=== PATIENT | female | born 1945 | race Caucasian/White ===

== ENCOUNTER 2016-06-18 09:20 | Day surgery (SDC) | payer OTHER, MEDICARE ==
[2016-06-07 14:25] VITALS: BMI 41.3
--- NOTE | 2016-06-18 07:35 | HP ---
Admitting History and Physical - Admission Chief Complaint: Right knee OA x years History of Present Illness: 70 year old female presents in regard to her right knee. Longstanding history of right knee OA, most prominent within the medial compartment - as documented via diagnostic imaging. Patient complains of pain, limited ROM and difficulty ambulating. Patient has failed conservative treatment including PO medication, activity modification and injections. At this point, patient would like to proceed with a right partial (medial compartment) knee arthroplasty (MAKOplasty) . - Past Medical History Cardiovascular: Yes: HTN, Hyperlipdemia Gastrointestinal: Yes: GERD ...: No Endocrine: Yes: Diabetes Mellitus - Past Surgical History Additional Past Surgical History: See written H&P in chart - Smoking History Smoking history: Former smoker Have you smoked in the past 12 months: No If you are a former smoker, when did you quit?: AFTER 1 YR QUIT AGE 16 - Alcohol/Substance Use Hx Alcohol Use: No Home Medications - Allergies Allergies/Adverse Reactions: Allergies Allergy/AdvReac Type Severity Reaction Status Date / Time erythromycin base Allergy Rash Verified 06/07/16 14:25 Sulfa (Sulfonamide Allergy Rash Verified 06/07/16 14:25 Antibiotics) - Home Medications Home Medications: Ambulatory Orders Amlodipine Besylate [Norvasc -] 5 mg PO DAILY 05/07/14 Glipizide [Glipizide ER] 5 mg PO DAILY 05/07/14 Metformin HCl 850 mg PO BID 05/07/14 Pantoprazole Sodium [Protonix] 40 mg PO DAILY 05/07/14 Gabapentin [Neurontin] 600 mg PO BID 08/27/15 Amiodarone HCl [Cordarone] 400 mg PO DAILY 06/07/16 Aspirin Coated [Ecotrin -] 81 mg PO DAILY 06/07/16 Metoprolol Succinate [Toprol Xl] 50 mg PO BID 06/07/16 Rosuvastatin Calcium 20 mg PO HS 06/07/16 Valsartan 80 mg PO DAILY 06/07/16 Review of Systems - Review of Systems Musculoskeletal: reports: Decreased ROM (Right knee), Joint Pain, Joint Swelling Physical Examination Constitutional: Yes: Well Nourished, No Distress Eyes: Yes: Conjunctiva Clear HENT: Yes: Atraumatic, Normocephalic Neck: Yes: Supple Cardiovascular: Yes: Regular Rate and Rhythm Respiratory: Yes: Regular Gastrointestinal: Yes: Soft ...Rectal Exam: Yes: Deferred Musculoskeletal: Yes: Joint Stiffness (Right knee) Assessment/Plan 70 year old female presents in regard to her right knee. Longstanding history of right knee medial compartment osteoarthritis. Patient has failed conservative treatment. Proceed with a right partial (medial compartment) knee arthroplasty (MAKOplasty).
[~2016-06-18 09:20] MED LIST: CEFAZOLIN 2 GM in DEXTROSE 5%-WATER - 50 ML IVPB ONE; CELECOXIB 200 MG CAPSULE PO ONE; GABAPENTIN 300 MG CAPSULE (FP) PO ONE; ROPIVICAINE 0.2%/MORPH PF/KETOROLAC - 51ML DISP.SYRINGE IA ONE; TRANEXAMIC ACID 1000 MG/10 ML VIAL IVPUSH ONE; oxyCODONE HCL 10 MG SUSTAINED ACTING TABLET PO ONE
[2016-06-18] MEDS ORDERED: ceFAZolin SODIUM 1 GM VIAL ONE ×2 (09:27→11:44)
[2016-06-18] MEDS ORDERED: THROMBIN (BOVINE) 5,000 UNIT VIAL TP ONE (09:28)
[2016-06-18] MEDS ORDERED: GELATIN, ABSORBABLE 100 EACH SPONGE TP ONE (09:28)
[2016-06-18] MEDS ORDERED: DEXAMETHASONE SOD PHOSPHATE/PF 10 MG/ML SDV ONE (10:22)
[2016-06-18] MEDS ORDERED: MIDAZOLAM HCL 2 MG/2 ML SINGLE DOSE VIAL ONE (10:23)
[2016-06-18] MEDS ORDERED: ROPIVACAINE HCL 0.5% 30ML VIAL ONE (10:23)
[2016-06-18] MEDS ORDERED: PROPOFOL 20 ML ONE ×3 (11:12)
[2016-06-18] MEDS ORDERED: SUCCINYLCHOLINE CHLORIDE 200 MG/10 ML VIAL ONE (11:14)
[2016-06-18] MEDS ORDERED: BUPIVACAINE HCL/PF 0.5% (5MG/ML) 10 ML VIAL ONE (11:19)
[2016-06-18] MEDS ORDERED: VANCOMYCIN 1,000 MG VIAL (RESTRICTED TO ID ONLY) ONE (12:31)
[2016-06-18] MEDS ORDERED: ONDANSETRON 4 MG/2 ML VIAL ONE (13:26)
[2016-06-18] MEDS ORDERED: ONDANSETRON 4 MG/2 ML VIAL IVPB PRN (14:38)
[2016-06-18] MEDS ORDERED: MAG HYDROX/AL HYDROX/SIMETH 30 ML UNIT-DOSE CUP PO PRN (14:38)
--- NOTE | 2016-06-18 14:38 | OP ---
Operative Note - Note: Operative Date: 06/18/16 Pre-Operative Diagnosis: right knee OA Operation: right knee makoplasty partial medial knee replacement Post-Operative Diagnosis: Same as Pre-op Surgeon: Donald Lopez [employer] Technician: Joana Leyva Anesthesia: Spinal Estimated Blood Loss (mls): 100
[2016-06-18] MEDS ORDERED: oxyCODONE HCL 5 MG TABLET PO PRN (14:45)
[2016-06-18] MEDS ORDERED: LACTATED RINGERS SOLUTION 1,000 ML IV SCH ×2 (14:45)
[2016-06-18] MEDS: ACETAMINOPHEN 325 MG TABLET (FP) PO SCH ×2 (15:25→21:25)
[2016-06-18] MEDS: traMADol HCL 50 MG TABLET PO SCH ×2 (15:25→21:25)
[2016-06-18] MEDS: KETOROLAC TROMETHAMINE 30 MG/1 ML VIAL IVPUSH SCH ×2 (15:25→21:26)
[2016-06-18] MEDS: oxyCODONE HCL 5 MG TABLET PO PRN (18:57)
[2016-06-18] MEDS: CEFAZOLIN 2 GM/D5W 50 ML IVPB SCH (20:16)
[2016-06-18] MEDS: GABAPENTIN 300 MG CAPSULE (FP) PO SCH (21:24)
[2016-06-18] MEDS: SENNOSIDES/DOCUSATE COMBO (SENNA PLUS) TABLET (UD) PO SCH (21:24)
[2016-06-18] MEDS: METOPROLOL SUCCINATE 50 MG TAB.SR.24H (FP) PO SCH (21:24)
[2016-06-18] MEDS: ASCORBIC ACID 500 MG TABLET (FP) PO SCH (21:25)
[2016-06-18] MEDS: oxyCODONE HCL 10 MG SUSTAINED ACTING TABLET PO SCH (21:35)
[2016-06-18] MEDS ORDERED: ROSUVASTATIN CA 20 MG TABLET (FP) PO SCH (22:00)
[2016-06-18] MEDS ORDERED: GABAPENTIN 300 MG CAPSULE (FP) PO SCH (22:00)
[2016-06-19] MEDS: traMADol HCL 50 MG TABLET PO SCH ×2 (03:04→09:19)
[2016-06-19] MEDS: ACETAMINOPHEN 325 MG TABLET (FP) PO SCH ×2 (03:04→09:20)
[2016-06-19] MEDS: CEFAZOLIN 2 GM/D5W 50 ML IVPB SCH (03:04)
[2016-06-19] MEDS: KETOROLAC TROMETHAMINE 30 MG/1 ML VIAL IVPUSH SCH ×2 (03:05→09:22)
[2016-06-19] MEDS ORDERED: glipiZIDE-XL 5 MG TAB.ER.24 PO SCH (07:00)
[2016-06-19 08:45] LABS: ANION GAP 6 (8-16); CO2 25 mmol/L (22-28); GLUCOSE,RANDOM 185 mg/dl (74-106)
[2016-06-19 08:57] LABS: MCH 26.5 pg (25.7-33.7); MCHC 32.4 g/dl (32.0-36.0); MEAN CELL VOLUME 81.8 fl (80-96); MEAN PLT VOLUME 8.7 fl (7.5-11.1); PLATELET COUNT 289 K/MM3 (134-434); RDW 15.6 % (11.6-15.6); WHITE BLOOD COUNT 12.1 K/mm3 (4.0-10.8)
[2016-06-19] MEDS: oxyCODONE HCL 10 MG SUSTAINED ACTING TABLET PO SCH (09:18)
[2016-06-19] MEDS: GABAPENTIN 300 MG CAPSULE (FP) PO SCH (09:19)
[2016-06-19] MEDS: ASCORBIC ACID 500 MG TABLET (FP) PO SCH (09:19)
[2016-06-19] MEDS: SENNOSIDES/DOCUSATE COMBO (SENNA PLUS) TABLET (UD) PO SCH (09:19)
[2016-06-19] MEDS: METOPROLOL SUCCINATE 50 MG TAB.SR.24H (FP) PO SCH (09:21)
--- NOTE | 2016-06-19 09:27 | PN ---
Progress Note (short form) - Note Progress Note: Pt seen and examined. Comfortable. No complaints. AVSS Selected Entries 06/19/16 06/19/16 06:49 07:59 Temperature 98.6 F Pulse Rate 65 Respiratory 17 Rate Blood Pressure 132/60 O2 Sat by Pulse 97 Oximetry (%) Laboratory Tests 06/19/16 06/19/16 08:00 08:00 WBC 12.1 H Hgb 10.8 Hct 33.3 Plt Count 289 Sodium 133 L Potassium 4.2 Chloride 102 Carbon Dioxide 25 Anion Gap 6 L BUN 26 H Random Glucose 185 H Gen: NAD RLE: c/d/i, NVID A/P 70yo female POD#1 s/p R NOE medial UKA 1. PT/OOB - WBAT RLE 2. D/C home today
--- NOTE | 2016-06-19 09:38 | DS ---
Physical Examination Vital Signs: Vital Signs Temperature 98.6 F 06/19/16 06:49 Pulse Rate 65 06/19/16 06:49 Respiratory Rate 17 06/19/16 07:59 Blood Pressure 132/60 06/19/16 06:49 O2 Sat by Pulse Oximetry (%) 97 06/19/16 07:59 Labs: CBC, BMP 06/19/16 08:00 06/19/16 08:00 Discharge Summary Reason For Visit: OSTEOARTHRITIS Current Active Problems Osteoarthritis of right knee (Acute) Procedures: Principal: makoplasty right medial unicompartmental knee replacement Hospital Course: Admitted for elective surgery. Procedure performed without complications. Pt received postoperative antibiotic prophylaxis and DVT ppx. Ambulated with physical therapy. Stable for discharge home with outpatient followup. Condition: Stable - Instructions Diet, Activity, Other Instructions: Dr. Lopez - Knee Replacement Instructions Keep the Aquacel dressing on until removed by Dr. Lopez in 10-14 days - it is antibacterial and waterproof and you can shower with it on. Call the office for a follow-up appointment with Dr. Lopez in 10-14 days. [phone] Take ELIQUIS twice daily for 12 days (or if insurance doesn't cover it Aspirin 325mg twice daily) to prevent blood clots in your legs - after that, resume taking your 81mg Aspirin once daily. Resume Pantoprazole 40mg daily to protect against heartburn and ulcers. Take a multiviamin and additional vitamin C supplement daily. Make sure to eat plenty of protein. Drink plenty of water to stay hydrated and prevent constipation. For pain: *Mild pain (1-3/10): Take 1 Tramadol tablet every 4 hours as needed. Moderate pain (4-6/10): Take 1 Tramadol tablet and 1 Percocet tablet every 4 hours as needed. Severe pain (7-10/10): Take 1 Tramadol tablet and 2 Percocet tablets every 4 hours as needed. Activity: You can put as much weight on the operative leg as you want Right after you get home, there will be a physical therapist coming to your house to help you walk around and bend/straighten your knee. After your follow-up appointment, you will be sent for more intensive outpatient physical therapy which will include machines and equipment that the home therapist cannot bring to your house. Always use a walker or cane for balance and to prevent falls. Disposition: [facility]/HOME HEALTH CARE - Home Medications Comprehensive Discharge Medication List: Ambulatory Orders Amlodipine Besylate [Norvasc -] 5 mg PO DAILY 05/07/14 Glipizide [Glipizide ER] 5 mg PO DAILY 05/07/14 Metformin HCl 850 mg PO BID 05/07/14 Pantoprazole Sodium [Protonix] 40 mg PO DAILY 05/07/14 Gabapentin [Neurontin] 600 mg PO BID 08/27/15 Amiodarone HCl [Cordarone -] 400 mg PO DAILY 06/07/16 Metoprolol Succinate [Toprol Xl] 50 mg PO BID 06/07/16 Rosuvastatin Calcium 20 mg PO HS 06/07/16 Valsartan 80 mg PO DAILY 06/07/16 Apixaban [Eliquis -] 2.5 mg PO BID #23 tablet 06/19/16 Ascorbic Acid [Vitamin C -] 500 mg PO BID tablet 06/19/16 Multivitamins [Multivit ([facility] Formul[facility])] 1 tab PO DAILY tab 06/19/16 Oxycodone HCl/Acetaminophen [Percocet 5-325 mg Tablet] 1 - 2 tab PO Q4H PRN #60 tablet MDD 10 06/19/16 Sennosides/Docusate Sodium [Pericolace -] 2 tablet PO BID tablet 06/19/16 Tramadol HCl [Ultram -] 50 mg PO Q4H PRN #90 tablet MDD 6 06/19/16
--- NOTE | 2016-06-19 09:52 | PN ---
Progress Note (short form) - Note Progress Note: 70F POD1 s/p right knee makoplasty under spinal anesthetic with adductor canal and selective tibial blocks for post operative pain. Pt is doing well, states that pain is well controlled, AVSS, reports no anesthetic complications. Sensory and motor function intact in both lower extremities.
[2016-06-19] MEDS ORDERED: APIXABAN 2.5 MG TABLET PO SCH (10:00)
[2016-06-19] MEDS ORDERED: PANTOPRAZOLE 40 MG TABLET (FP) PO SCH (10:00)
[2016-06-19] MEDS ORDERED: amLODIPine BESYLATE 5 MG TABLET (FP) PO SCH (10:00)
[2016-06-19] MEDS ORDERED: VALSARTAN 80 MG TABLET (UD) PO SCH (10:00)
[2016-06-19] MEDS ORDERED: AMIODARONE HCL 200 MG TABLET (FP) PO SCH (10:00)
[2016-06-19] MEDS ORDERED: MULTIVITAMINS (DAILY MVI) TABLET (FP) PO SCH (10:00)
[2016-06-19] MEDS ORDERED: AMIODARONE HCL PO SCH (10:00)
[2016-06-19] MEDS: oxyCODONE HCL 5 MG TABLET PO PRN (12:27)
[2016-06-19 14:29] VITALS: BP 143/61; PULSE 63; TEMP 97.4
--- NOTE | 2016-07-19 18:11 | SPEC ---
DATE OF OPERATION: 06/18/2016 PREOPERATIVE DIAGNOSIS: Right knee medial compartment osteoarthritis. POSTOPERATIVE DIAGNOSIS: Right knee medial compartment osteoarthritis. PROCEDURE: Right knee unicompartmental medial knee replacement with MAKOplasty robotic navigation. ATTENDING: Gladis Newton MD FUEL CELL DESIGNER: NEAL Trevino ANESTHESIA: Spinal plus sedation. ESTIMATED BLOOD LOSS: 100 mL. COMPLICATIONS: None. DISPOSITION: The patient was transferred to the PACU in stable condition. IMPLANTS USED: NOE size 3 femoral component, size 3 tibial component, 8-mm polyethylene component. INDICATIONS: This is a 70-year-old female who presented to the office complaining of right knee pain. All of her pain was localized to the medial compartment and medial joint line and she had no pain in the lateral and patellofemoral compartment. X-rays and physical examination revealed medial compartment osteoarthritis. The patient was initially treated nonoperatively with injections, medications, and physical therapy but continued to have severe pain and ambulatory dysfunction. The possibility of doing a partial knee replacement was discussed with her and as 100% of her pain was coming from the medial compartment, she agreed with this plan. The risks, benefits and alternatives to the procedure were explained to the patient in great detail and she elected to proceed with the surgery. The patient was seen and examined by Dr. Newton and diagnosed with isolated medial compartment osteoarthritis. The knee pain was localized to the medial joint line and there were no complaints of pain in other areas of the knee. Because of failure of initial conservative treatment, the patient was indicated for a partial knee replacement. The risks, benefits and alternatives of the procedure were explained in great detail and the patient elected to proceed with surgery. These risks included, but are not limited to, anesthesia risks, scarring, instability, stiffness, infection, pulmonary embolus, deep vein thrombosis, intraoperative fracture, intraoperative neurovascular injury, problems with wound healing, failed procedure, persistent pain, nerve injury, possibility of lower limb numbness and weakness, the need for possible subsequent salvage surgeries, persistent limp, disability and . On the day of surgery the patient was taken to the operating room and placed on the OR table. Spinal anesthesia was administered by the anesthesiologist. The patient was then positioned supine on the table and all bony prominences were padded. A nonsterile tourniquet was placed on the proximal thigh of the operative leg. The knee was then prepped and draped in the usual sterile fashion and intravenous antibiotics were given for infection prophylaxis. A surgical time out was then performed with the team and the patient's identify, procedure, side, availability of implants and the administration of antibiotics was confirmed. With the knee flexed, an 8 cm incision was made just slightly medial to the midline and carried down through the subcutaneous fat to the underlying retinaculum. Electrocautery was used to achieve hemostasis. A limited medial parapatellar arthrotomy was performed. This was followed by a subperiosteal dissection of the tissue off the proximal medial tibia. A portion of fat pad was removed from under the patellar tendon to improve visualization and a small portion of fat was excised off the distal supracondylar femur. The knee was then flexed further and the anterior horn of the medial meniscus was released. Grade 4 changes were noted diffusely throughout the medial compartment. The lateral compartment appeared to be in good condition. Femoral and tibial checkpoints were then placed in the appropriate location using a mallet. Two parallel bicortical self-drilling pins were placed in the proximal tibia after making stab incisions and bluntly dissecting down to bone. These were positioned approximately 10 cm distal to the tibial tubercle. Two pins were then placed in the proximal femur using the same technique. These were located approximately 10 cm proximal to the superior pole of the patella. The [employer] navigation arrays were then attached to both the femoral and tibial pins and the lower extremity was then registered to the robotic navigation device using various joint movements, as well as inputting approximately 50 checkpoints. The knee was then taken through a full range of motion with a corrective valgus force applied. Alignment in varus/valgus was measured at 0, 30, 60, 90 and 120 degrees of flexion to determine soft tissue balance in all of these positions. The navigation device showed appropriate tracking of the virtual components on the screen, as well as a graphic representation of the soft tissue balance. The components were repositioned virtually using the software until optimal soft tissue balance was achieved. Once this was accomplished, the final plan was saved and sent to the robot. Retractors were then placed around the distal femur. The robot was brought into the sterile field and registered with the navigation device. The robotic arm with a santiago was then used to remove the appropriate amount of bone from the femur and tibia as per the saved software plan. The knee was then irrigated. Trial components were placed and the knee was taken through a full range of motion to assess soft tissue balance and alignment. The tracking and range of motion were found to be excellent and the soft tissue balance was optimal and according to plan. All trial components were then removed and an Esmarch bandage was used to exsanguinate the leg. The tourniquet was inflated in preparation for cementing. All bony surfaces were cleaned with pulsatile lavage and dried. Bone cement was then prepared on the back table and final components were cemented in place in the usual fashion. Extruded cement was removed. Once the cement had hardened, the knee was taken through a full range of motion to assess stability, balance and patellar tracking. These were found to be optimal. The trial polyethylene was exchanged for a final implant. Medial and inferior osteophytes were debrided off the patella (patelloplasty). The navigation arrays and Le pins were removed from the femur and tibia. All wounds were then thoroughly irrigated with normal saline. A periarticular injection was used to locally infiltrate the capsular tissues surrounding the implant and prosthesis. A 1 Vicryl and 0 V-Ingrid 180 barbed sutures were used to close the arthrotomy. 2-0 Vicryl sutures were used in the subcutaneous tissues. The skin was closed using both 3-0 V-Ingrid 90 suture in a running subcuticular fashion and Dermabond skin adhesive. 4-0 undyed Vicryl and Dermabond skin adhesive was used to close the stab incisions made for the navigation pins. Once this was completed, sterile Aquacel dressings were applied to each incision site. A compressive dressing was applied. The tourniquet was then deflated and the patient was awakened and went to the PACU in stable condition. GLADIS NEWTON M.D. [id number]
== END 2016-06-19 14:52 | disposition home health service (06) ==
LOC: FASU 09:20 → FM/S 16:25 → FASU 06-19 14:52
PROVIDERS: ATTEND Student in an Organized Health Care Education/Training Program
PROC: 8E0YXBZ Computer Assisted Procedure of Lower Extremity (ICD-10-PCS; 2016-06-18)
PROC: 8E0Y0CZ Robotic Assisted Procedure of Lower Extremity, Open Approach (ICD-10-PCS; 2016-06-18)
PROC: 0SRC0L9 Replacement of Right Knee Joint with Medial Unicondylar Synthetic Substitute, Cemented, Open Approach (ICD-10-PCS; principal; 2016-06-18 12:06)
DX: M17.11 Unilateral primary osteoarthritis, right knee (principal); I10 Essential (primary) hypertension; E11.9 Type 2 diabetes mellitus without complications; E78.5 Hyperlipidemia, unspecified; K21.9 Gastro-esophageal reflux disease without esophagitis; Z87.891 Personal history of nicotine dependence
CPT/HCPCS: 20985; 27446; C1776; S2900; 36415; 73560-TC-RT; 80048; 85027; 94010; 94760; 97116-GP; 97162-GP